=== PATIENT | female | born 1960 | race Caucasian/White ===

== ENCOUNTER 2022-07-07 15:04 | Inpatient (IN) | payer MEDICARE, MEDICAID, SELFPAY ==
[2022-07-07 23:07] VITALS: BP 155/91; PULSE 73; RESP 18; TEMP 36.4; O2SAT 95
[2022-07-07 23:11] VITALS: BMI 30.7
--- NOTE | 2022-07-07 23:40 | PC.NURSE ---
pt admitted to NPU from [facility] for s/i and increased depression. arrived calm and cooperative. safety/body check performed with no contraband noted. pt has midline abdomen scar from previous surgery from an infection. no other issues noted. pt reports increased suicidal thoughts and depression for the last three weeks. states she has this intermittently and it stems from missing her mother and child. reports home meds and their compliance. denies hi vh but reports auditory hallucinations telling her to harm herself. pt has some difficulty ambulating and uses a straight cane to assist at home. lives with brother who is supportive. reports marijuana use but denies other drug or alcohol use. vapes as well. oriented to unit. no other issues voiced or noted.
[2022-07-07] MEDS: benzocaine 20% 7 gm 1 APPLIC MUCOUS MEM (23:46)
[2022-07-07] MEDS: nicotine 4 mg lozenge MUCOUS MEM (23:49)
[2022-07-08 06:00] VITALS: BP 142/85; PULSE 91; RESP 15; TEMP 36.6; O2SAT 97
[2022-07-08] MEDS: ibuprofen 600 mg Tablet PO (06:09)
[2022-07-08] MEDS: hyDROXYzine 25 mg Capsule 50 MG PO (08:24)
[2022-07-08] MEDS: nicotine 21 mg Patch 1 PATCH TRANSDERMA (09:40)
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
[2022-07-08] MEDS: sertraline 100 mg Tablet 150 MG PO (11:51)
[2022-07-08] MEDS: prazosin 5 mg Capsule PO (11:52)
[2022-07-08] MEDS: lisinopril 20 mg Tablet PO (11:52)
[2022-07-08] MEDS: lurasidone 20 mg Tablet 40 MG PO ×2 (12:29→18:14)
[2022-07-08 14:00] VITALS: BP 101/62; PULSE 92; TEMP 36.6
[2022-07-08 15:28] VITALS: PULSE 91; RESP 18; O2SAT 97
[2022-07-08 15:29] LABS: Glucose Point of Care 138 mg/dL (70-110)
--- NOTE | 2022-07-08 15:44 | PC.NURSE ---
génesis xie notify nursing staff of pt bp 84/61 by machine, manual bp 82/58 by myself, rn acute notified results of bp at that time.82/60 notified yeni mendiola . Rapid called at 1517 cutting supervisor, Dr. fabian,génesis Xie, RT Franklin, Dr. Becker, edwardo Castellanos, Rn Madelin pt bp 100/60 lying down, sitting up 79/49 pt being transfered to Med-surg room 276 bed 2
--- NOTE | 2022-07-08 15:55 | PC.NURSE ---
This RN responded to rapid response in NPU. Patient was assisted into wheelchair and brought into pt room and assisted to bed. Patient's BP was taken manual and then again with vital sign machine. MD at bedside. Orthostatic vitals obtained. Orthostatic vitals positive. IV started per MD request. this RN started 20 G IV in posterior right forearm. Primary nurse made aware that while IV is in place in NPU, patient will need to be 1:1. All trash and sharps were collected. Sharps disposed of in Sharps container in nurses station.
[2022-07-08 16:01] VITALS: BP 101/62; BP 103/67; BP 92/57; PULSE 111; PULSE 92; PULSE 96
--- NOTE | 2022-07-08 16:02 | P.CONIM_ITS ---
Providers/Reason For Consult Consulting Physician/Specialty*: Dr. Pablo Agarwal/ internal medicine Reason for Consult*: Orthostatic hypotension Requesting Physician: Dr. Herve Sheffield psychiatry Attending Physician: Yohannes Burger MD History of Present Illness History of Present Illness Cordelia Vargas is a 62 year old female with past medical history of major depressive disorder, currently she was being managed in NPU, MDD, with active suicidal ideation, rapid response was called, as the patient was about to pass out, I along with other medical staff responded to the rapid response Vital signs were checked, patient was found to be orthostatic positive, she denied any, chest pain shortness of breath, palpitation, nausea vomiting. Patient was transferred to medical floor IV hydration as She appeared slightly dry. Review of Systems General: Reports: 10 or more systems reviewed and unremarkable except in HPI and below Const: Denies: fever(s), chills, body aches, change in appetite or diaphoresis Card: Denies: palpitations, edema, swelling of feet/ankles, dyspnea on exertion, orthopnea or leg pain with exertion Resp: Denies: dyspnea, productive cough, wheezing or pain on inspiration GI: Denies: abdominal pain, nausea, vomiting, diarrhea or constipation : Denies: flank pain Musc: Denies: back pain, extremity pain or extremity swelling Neuro: Denies: headache(s), difficulty walking or confusion Medications/Allergies Home Medications Medication Instructions Recorded Confirmed Last Taken Type albuterol sulfate 90 mcg/actuation 2 puff inhalation PRN PRN 07/07/22 07/08/22 07/06/22 History aerosol inhaler (Ventolin HFA) Shortness Of Breath Or Wheezing amitriptyline 150 mg tablet 150 mg PO UNK 07/07/22 07/07/22 Unknown History aripiprazole 20 mg tablet (Abilify) 20 mg PO K 07/07/22 07/08/22 Unknown History atorvastatin 20 mg tablet (Lipitor) 20 mg PO K 07/08/22 07/08/22 Unknown H istory benztropine 1 mg tablet 1 mg PO K 07/08/22 07/08/22 Unknown History cyclobenzaprine 5 mg tablet 5 mg PO TID spasms 07/08/22 07/08/22 Unknown History divalproex 500 mg tablet,extended 500 mg PO UNK 07/08/22 07/08/22 Unknown History release 24 hr (Depakote ER) famotidine 20 mg tablet (Acid 20 mg PO UNK 07/08/22 07/08/22 Unknown History Controller) gabapentin 100 mg capsule 100 mg PO UNK 07/08/22 07/08/22 Unknown History (Neurontin) hydroxyzine pamoate 50 mg capsule 50 mg PO DAILY 07/08/22 07/08/22 Unknown History (Vistaril) levetiracetam 500 mg tablet 500 mg PO UNK 07/08/22 07/08/22 Unknown History (Keppra) lisinopril 20 mg tablet (Zestril) 20 mg PO DAILY 07/08/22 07/08/22 Unknown History lurasidone 40 mg tablet (Latuda) 40 mg PO UNK 07/08/22 07/08/22 Unknown History mirtazapine 15 mg tablet (Remeron) 15 mg PO UNK 07/08/22 07/08/22 Unknown History pantoprazole 40 mg tablet,delayed 40 mg PO DAILY Indigestion 07/08/22 07/08/22 Unknown History release (Protonix) prazosin 5 mg capsule (Minipress) 5 mg PO UNK 07/08/22 07/08/22 Unknown History rivaroxaban 10 mg tablet (Xarelto) 10 mg PO K 07/08/22 07/08/22 Unknown His tory sertraline 100 mg tablet (Zoloft) 100 mg PO UNK 07/08/22 07/08/22 Unknown History sucralfate 1 gram tablet (Carafate) 1 g PO UNK 07/08/22 07/08/22 Unknown History tetrabenazine 25 mg tablet 25 mg PO UNK 07/08/22 07/08/22 Unknown History (Xenazine) trazodone 100 mg tablet 100 mg PO UNK 07/08/22 07/08/22 Unknown History Allergies Allergy/AdvReac Type Severity Reaction Status Date / Time apixaban Allergy ALGY-Anaphy Verified 07/07/22 23:24 laxis erythromycin base Allergy ADR/ALGY-Fl Verified 07/07/22 23:25 [From E.E.S.] ushing Erythropoietin Analogues Allergy ALGY-Anaphy Verified 07/07/22 23:25 laxis latex Allergy ALGY-Difficulty Verified 07/07/22 23:25 Breathing shellfish derived Allergy ALGY-Difficulty Verified 07/07/22 23:25 Breathing Sulfa (Sulfonamide Allergy ADR/ALGY-Fl Verified 07/07/22 23:23 Antibiotics) ushing sulfamethoxazole Allergy ADR/ALGY-Fl Verified 07/07/22 23:24 [From Bactrim] ushing trimethoprim [From Bactrim] Allergy ADR/ALGY-Fl Verified 07/07/22 23:24 ushing Current Medications Generic Name Dose Route Start Last Admin Trade Name Freq PRN Reason Stop Dose Admin Benzocaine 1 applic 07/07/22 23:37 07/07/22 23:46 Benzocaine 20% 7 Gm MUCOUS MEM 1 applic PRN PRN Administration PAIN Hydroxyzine Pamoate 50 mg 07/07/22 23:07 07/08/22 08:24 Hydroxyzine 25 Mg Capsule PO 50 mg Q6H PRN Administration ANXIETY Ibuprofen 600 mg 07/07/22 23:07 07/08/22 06:09 Ibuprofen 600 Mg Tablet PO 600 mg Q6H PRN Administration MODERATE PAIN Lisinopril 20 mg 07/08/22 10:21 07/08/22 11:52 Lisinopril 20 Mg Tablet PO 20 mg DAILY CHLOÉ Administration Lurasidone HCl 40 mg 07/08/22 12:00 07/08/22 12:29 Lurasidone 20 Mg Tablet PO 40 mg BID CHLOÉ Administration Nicotine 1 patch 07/07/22 23:07 07/08/22 09:40 Nicotine 21 Mg Patch TRANSDERMA 1 patch DAILY PRN Administration NICOTINE WITHDRAWAL Nicotine Polacrilex 4 mg 07/07/22 23:42 07/07/22 23:49 Nicotine 4 Mg Lozenge MUCOUS MEM 4 mg Q2H PRN Administration NICOTINE CRAVINGS Non-Formulary Medication 12.5 mg 07/08/22 09:00 07/08/22 11:06 Tetrabenazine [Xenazine] PO Not Given DAILY CHLOÉ Prazosin HCl 5 mg 07/08/22 10:21 07/08/22 11:52 Prazosin 5 Mg Capsule PO 5 mg BID CHLOÉ Administration Sertraline HCl 150 mg 07/08/22 09:00 07/08/22 11:51 Sertraline 100 Mg Tablet PO 150 mg DAILY CHLOÉ Administration Vitals/I&O/Wt Last Vital Signs Temp 97.8 F 07/08/22 06:00 Pulse 91 07/08/22 15:28 Resp 18 07/08/22 15:28 BP 142/85 07/08/22 06:00 Pulse Ox 97 07/08/22 15:28 O2 Del Method Room Air 07/08/22 15:28 Weight last 48 hrs Weight 88.995 kg Weight 88.961 kg Physical Exam Const: COMMON NORMALS: patient oriented x3 HENMT: COMMON NORMALS: normocephalic and atraumatic HEAD & SCALP: normocephalic and atraumatic Resp: COMMON NORMALS: clear to auscultation bilaterally AUSCULTATION: clear to auscultation bilaterally Cardio: COMMON NORMALS: regular rate, regular rhythm, S1 normal heart sound present, S2 normal heart sound present, No gallops present (Cardio), No murmurs present (Cardio), No rub (Cardio) and Peripheral pulses 2+ throughout RATE: regular rate RHYTHM: regular rhythm HEART SOUNDS: S1 normal heart sound present and S2 normal heart sound present PERIPHERAL PULSES: Peripheral pulses 2+ throughout GI: COMMON NORMALS: Normal to inspection, nondistended, normoactive bowel sounds present, Soft to palpation, non-tender, No hepatosplenomegaly present and no masses AUSCULTATION: Yes normoactive bowel sounds PALPATION: Yes Soft to palpation and Yes No hepatosplenomegaly present RECTAL EXAM: deferred Extremity: COMMON NORMALS: no clubbing, cyanosis or edema and no pedal edema Neuro: COMMON NORMALS: patient oriented x3 Data 07/09/22 04:49 07/09/22 04:49 A&P Assessment and plan (1) Major depressive disorder, recurrent: (2) PTSD (post-traumatic stress disorder): (3) Orthostatic hypotension: (4) Pre-syncope: Plan 62 year old female with past medical history of major depressive disorder, currently she was being managed in NPU, MDD, with active suicidal ideation, rapid response was called, as the patient was about to pass out, I along with other medical staff responded to the rapid response Vital signs were checked, patient was found to be orthostatic positive, she denied any, chest pain shortness of breath, palpitation, nausea vomiting. Patient was transferred to medical floor IV hydration as She appeared slightly dry. Assessment: Presyncope secondary to significant orthostatic hypotension: Possibly secondary dehydration: Monitor routine a.m. labs Monitor orthostatic vital sign Continue IV hydration with normal saline 100 cc an hour Patient will be transferred to medical surgical unit for monitoring. Coding Level of Care Code 79151 Diagnoses Major depressive disorder, recurrent F33.9 PTSD (post-traumatic stress disorder) F43.10 Orthostatic hypotension I95.1 Pre-syncope R55
--- NOTE | 2022-07-08 16:09 | PC.NURSE ---
called report to Sanjana Pritchett, transfering pt via wheelchair to room 276 bed 2
[2022-07-08] MEDS: cyclobenzaprine 10 mg Tablet 5 MG PO ×2 (17:23→21:21)
--- NOTE | 2022-07-08 17:23 | PC.NURSE ---
Verbal order from Dr. Agarwal to hold Prazosin due to hypertensive
[2022-07-08] MEDS: sodium chloride 0.9% 1,000 ML 100 ML IV (17:24)
[2022-07-08] MEDS: acetaminophen 325 mg Tablet 650 MG PO ×2 (19:23→23:55)
[2022-07-08 19:57] VITALS: BP 145/83; PULSE 84; RESP 18; TEMP 36.7; O2SAT 94
[2022-07-08] MEDS: mirtazapine 15 mg Tablet PO (21:20)
[2022-07-08 23:56] VITALS: BP 135/72; PULSE 66; RESP 16; TEMP 36.5; O2SAT 93
[2022-07-09] VITALS (7 sets, daily range): BP systolic 144–175; BP diastolic 81–94; PULSE 67–84; RESP 14–20; TEMP 36.4–37.3; O2SAT 93–95
[2022-07-09] MEDS: sodium chloride 0.9% 1,000 ML 100 ML IV (02:47)
[2022-07-09 05:13] LABS: Basophils # 0.1 10^3/uL (0.0-0.1); Basophils % 0.7 %; Eosinophils # 0.3 10^3/uL (0.0-0.8); Eosinophils % 3.8 %; Hematocrit 40.9 % (37.0-47.0); Hemoglobin 11.8 g/dL (11.5-15.3); Lymphocytes # 4.1 10^3/uL (0.8-4.8); Lymphocytes % 45.5 %; Mean Corpuscular HGB Conc 28.9 g/dL (30.0-36.0); Mean Corpuscular Hemoglobin 28.3 pg (28.0-34.0); Mean Corpuscular Volume 98.1 fl (81-99); Mean Platelet Volume 10.1 fL (7.4-10.4); Monocytes % 11.1 %; Neutrophils # 3.46 10^3/uL (1.8-7.7); Neutrophils % 38.6 %; Nucleated Red Blood Cells % 0 %; Platelet Count 217 10^3/cmm (130-400); Red Blood Count 4.17 10^6/uL (4.1-5.3); Red Cell Distribution Width 12.5 % (12.1-15.1)
[2022-07-09 05:39] LABS: Alanine Aminotransferase 17 U/L (0-33); Albumin Level 3.5 g/dL (3.5-5.2); Alkaline Phosphatase 93 U/L (35-105); Anion Gap 14.7 (5-19); Aspartate Amino Transferase 23 U/L (0-32); Blood Urea Nitrogen 20 mg/dL (8-23); Calcium 8.3 mg/dL (8.5-10.5); Carbon Dioxide 22 mmol/L (22-29); Chloride 109 mmol/L (98-107); Globulin 2.7 g/dL (1.3-4.6); Glomerular Filtration Rate 72.9 mL/min (90-130); Glucose 100 mg/dL (65-115); Osmolality Calculated 295 mOsm/kg (285-295); Potassium 4.7 mmol/L (3.5-5.1); Sodium 141 mmol/L (136-145); Total Bilirubin 0.2 mg/dL (0.15-1.2); Total Protein 6.2 g/dL (6.6-8.7)
--- NOTE | 2022-07-09 09:15 | W.PM.NPUPNS ---
Subjective NPU Subjective: Patient presented today reporting that she is feeling better than when she got transferred to the [facility] unit. She reports she is feeling better overall as well tolerating the increase in Zoloft to 150 mg p.o. daily. We discussed the importance of us identifying what resources and referrals she needs to be safe after discharge. Mental Status Exam MSE Comments: This is an overweight versus obese, mixed and -Stateless female, in hospital scrubs, with adequate grooming and eye contact. No abnormal movements, except for some limited ataxia with gait and mild psychomotor retardation, and she did have some tongue gesticulations which could represent something post stroke versus EPS. Cooperative with exam in mild distress. Speech was slightly decreased rate and volume, with difficulty with pronunciation of Rs. Mood described as a little better; affect slightly subdued. Thought process, organized. Thought content: patient endorsed suicidal ideation but denies homicidal ideation, she endorsed paranoia but there were no delusions noted, patient reports that she does hear voices but did not appear to be attending to internal stimuli. Attention and concentration appeared intact, and memory appeared mostly reliable, but none were formally tested. Alert and oriented times three. Insight and judgment appeared fair. Impulse control is limited. Vitals/I&O/Wt Last Vital Signs Temp 97.6 F 07/09/22 04:25 Pulse 71 07/09/22 04:25 Resp 18 07/09/22 04:25 BP 169/93 07/09/22 04:25 Pulse Ox 95 07/09/22 04:25 O2 Del Method Room Air 07/09/22 04:25 07/08/22 07/09/22 07/09/22 22:59 06:59 14:59 Intake Total 938.333 / 938.333 480 / 480 Balance 938.333 / 938.333 480 / 480 Weight last 48 hrs Weight 88.995 kg Weight 88.961 kg Data NPU 07/10/22 07:46 07/10/22 07:46 Involuntary Hold Information 96 Hour Hold: 96 Hour Involuntary Admission: No Attestations NPU Medical Necessity Statement*: Inpatient hospitalization is medically necessary and the clinically appropriate intervention, at this time. We will monitor medications and make changes as indicated. Likely length of stay is 2-4 days. Coding Level of Care Code Acute Code for [facility] Fwd Diagnoses
[2022-07-09] MEDS: sertraline 100 mg Tablet 150 MG PO (09:51)
[2022-07-09] MEDS: cyclobenzaprine 10 mg Tablet 5 MG PO ×3 (09:51→21:26)
[2022-07-09] MEDS: lurasidone 20 mg Tablet 40 MG PO ×2 (09:53→17:05)
--- NOTE | 2022-07-09 12:15 | PM.PN ---
Subjective Subjective: Patient was seen and examined this morning, denied any dizziness, has been walking to bathroom without difficulty, she was complaining of some neck pain.Has been on IV fluids, orthostatic vital signs are negative. Medications: Medication Review Details: Generic Name Dose Route Start Last Admin Trade Name Ariq PRN Reason Stop Dose Admin Acetaminophen 650 mg 07/07/22 23:07 07/08/22 23:55 Acetaminophen 32 5 Mg Tablet PO 650 mg Q4H PRN Administration MILD PAIN Benzocaine 1 applic 07/07/22 23:37 07/07/22 23:46 Benzocaine 20% 7 Gm MUCOUS MEM 1 applic PRN PRN Administration PAIN Cyclobenzaprine HC l 5 mg 07/08/22 15:00 07/09/22 09:51 Cyclobenzaprine 10 Mg Tablet PO 5 mg TID CHLOÉ Administration Hydroxyzine Pamoat e 50 mg 07/07/22 23:07 07/08/22 08:24 Hydroxyzine 25 M g Capsule PO 50 mg Q6H PRN Administration ANXIETY Sodium Chloride 1,000 mls @ 100 m ls/hr 07/08/22 16:00 07/09/22 02:47 Sodium Chloride 0.9% IV 100 mls/hr .Q10H CHLOÉ Administration Ibuprofen 600 mg 07/07/22 23:07 07/08/22 06:09 Ibuprofen 600 Mg Tablet PO 600 mg Q6H PRN Administration MODERATE PAIN Lurasidone HCl 40 mg 07/08/22 12:00 07/09/22 09:53 Lurasidone 20 Mg Tablet PO 40 mg BID CHLOÉ Administration Mirtazapine 15 mg 07/08/22 21:00 07/08/22 21:20 Mirtazapine 15 M g Tablet PO 15 mg BEDTIME CHLOÉ Administration Nicotine 1 patch 07/07/22 23:07 07/08/22 09:40 Nicotine 21 Mg P atch TRANSDERMA 1 patch DAILY PRN Administration NICOTINE WITHDRAW AL Nicotine Polacrile x 4 mg 07/07/22 23:42 07/07/22 23:49 Nicotine 4 Mg Lo zenge MUCOUS MEM 4 mg Q2H PRN Administration NICOTINE CRAVINGS Non-Formulary Medi cation 12.5 mg 07/08/22 09:00 07/08/22 11:06 Tetrabenazine [X enazine] PO Not Given DAILY CHLOÉ Sertraline HCl 150 mg 07/08/22 09:00 07/09/22 09:51 Sertraline 100 M g Tablet PO 150 mg DAILY CHLOÉ Administration Vitals/I&O/Wt Last Vital Signs Temp 97.6 F 07/09/22 04:25 Pulse 67 07/09/22 09:16 Resp 18 07/09/22 09:16 BP 167/90 07/09/22 10:05 Pulse Ox 94 07/09/22 09:16 O2 Del Method Room Air 07/09/22 09:16 07/08/22 07/09/22 07/09/22 22:59 06:59 14:59 Intake Total 938.333 / 938.333 480 / 480 Balance 938.333 / 938.333 480 / 480 Weight last 48 hrs Weight 88.995 kg Weight 88.961 kg Physical Exam Const: COMMON NORMALS: patient oriented x3 HENMT: COMMON NORMALS: normocephalic and atraumatic HEAD & SCALP: normocephalic and atraumatic Resp: COMMON NORMALS: clear to auscultation bilaterally AUSCULTATION: clear to auscultation bilaterally Cardio: COMMON NORMALS: regular rate, regular rhythm, S1 normal heart sound present, S2 normal heart sound present, No gallops present (Cardio), No murmurs present (Cardio), No rub (Cardio) and Peripheral pulses 2+ throughout RATE: regular rate RHYTHM: regular rhythm HEART SOUNDS: S1 normal heart sound present and S2 normal heart sound present PERIPHERAL PULSES: Peripheral pulses 2+ throughout GI: COMMON NORMALS: Normal to inspection, nondistended, normoactive bowel sounds present, Soft to palpation, non-tender, No hepatosplenomegaly present and no masses AUSCULTATION: Yes normoactive bowel sounds PALPATION: Yes Soft to palpation and Yes No hepatosplenomegaly present RECTAL EXAM: deferred Extremity: COMMON NORMALS: no clubbing, cyanosis or edema and no pedal edema Neuro: COMMON NORMALS: patient oriented x3 Data 07/09/22 04:49 07/09/22 04:49 A&P Assessment and plan (1) Major depressive disorder, recurrent: (2) PTSD (post-traumatic stress disorder): (3) Orthostatic hypotension: (4) Pre-syncope: Plan 62 year old female with past medical history of major depressive disorder, currently she was being managed in NPU, MDD, with active suicidal ideation, rapid response was called, as the patient was about to pass out, I along with other medical staff responded to the rapid response Vital signs were checked, patient was found to be orthostatic positive, she denied any, chest pain shortness of breath, palpitation, nausea vomiting. Patient was transferred to medical floor IV hydration as She appeared slightly dry. Assessment: Presyncope secondary to significant orthostatic hypotension: Possibly secondary dehydration: Monitor routine a.m. labs Monitor orthostatic vital sign Continue IV hydration with normal saline 100 cc an hour Patient is being transferred back to [facility] Hypertension: Resume antihypertensive medications from tomorrow morning. For today we will give her 1 dose of lisinopril 10 mg p.o. 1 time today. Attestations Medical Necessity Statement*: Per primary team. Coding Level of Care Code Acute Code for g Fwd Diagnoses Major depressive disorder, recurrent F33.9 PTSD (post-traumatic stress disorder) F43.10 Orthostatic hypotension I95.1 Pre-syncope R55
--- NOTE | 2022-07-09 12:18 | PC.NURSE ---
called report to Alisa Rodriguez RN in NPU
[2022-07-09] MEDS: ibuprofen 600 mg Tablet PO (14:10)
--- NOTE | 2022-07-09 16:06 | PC.NURSE ---
patient transferred from [facility] in stable condition. States she always has suicidal thoughts with no intent.
[2022-07-09] MEDS: acetaminophen 325 mg Tablet 650 MG PO (17:02)
[2022-07-09] MEDS: mirtazapine 15 mg Tablet PO (21:26)
[2022-07-09] MEDS: hyDROXYzine 25 mg Capsule 50 MG PO (21:32)
[2022-07-10] MEDS: ibuprofen 600 mg Tablet PO ×2 (00:15→22:31)
[2022-07-10 06:00] VITALS: RESP 14; BMI 30.7
[2022-07-10 08:00] LABS: Basophils # 0.1 10^3/uL (0.0-0.1); Basophils % 0.8 %; Eosinophils # 0.4 10^3/uL (0.0-0.8); Eosinophils % 5.2 %; Hematocrit 42.5 % (37.0-47.0); Hemoglobin 13.4 g/dL (11.5-15.3); Lymphocytes # 3.4 10^3/uL (0.8-4.8); Mean Corpuscular HGB Conc 31.5 g/dL (30.0-36.0); Mean Corpuscular Hemoglobin 28.4 pg (28.0-34.0); Mean Platelet Volume 9.9 fL (7.4-10.4); Monocytes # 0.6 10^3/uL (0.2-0.9); Monocytes % 8.2 %; Neutrophils # 2.65 10^3/uL (1.8-7.7); Neutrophils % 37.5 %; Nucleated Red Blood Cells % 0 %; Platelet Count 258 10^3/cmm (130-400); Red Blood Count 4.72 10^6/uL (4.1-5.3); Red Cell Distribution Width 12.4 % (12.1-15.1); White Blood Count 7.1 10^3/uL (4.0-10.0)
[2022-07-10 08:15] LABS: Alanine Aminotransferase 27 U/L (0-33); Albumin Level 4.2 g/dL (3.5-5.2); Alkaline Phosphatase 125 U/L (35-105); Anion Gap 14.5 (5-19); Aspartate Amino Transferase 29 U/L (0-32); Blood Urea Nitrogen 13 mg/dL (8-23); Calcium 8.8 mg/dL (8.5-10.5); Carbon Dioxide 24 mmol/L (22-29); Chloride 104 mmol/L (98-107); Glomerular Filtration Rate 85.1 mL/min (90-130); Glucose 101 mg/dL (65-115); Osmolality Calculated 286 mOsm/kg (285-295); Potassium 4.5 mmol/L (3.5-5.1); Sodium 138 mmol/L (136-145); Total Bilirubin 0.3 mg/dL (0.15-1.2); Total Protein 7.2 g/dL (6.6-8.7)
[2022-07-10] MEDS: lurasidone 20 mg Tablet 40 MG PO ×2 (08:26→17:31)
[2022-07-10] MEDS: cyclobenzaprine 10 mg Tablet 5 MG PO ×3 (08:27→19:39)
[2022-07-10] MEDS: sertraline 100 mg Tablet 150 MG PO (08:27)
[2022-07-10] MEDS: lisinopril 20 mg Tablet PO (08:33)
[2022-07-10] MEDS: benzocaine 20% 7 gm 1 APPLIC MUCOUS MEM (09:34)
[2022-07-10] MEDS: OLANZapine 5 mg ODT PO ×2 (09:56→19:39)
[2022-07-10 10:00] VITALS: BP 138/94; PULSE 74
[2022-07-10] MEDS: haloperidol 5 mg Tablet PO (10:28)
--- NOTE | 2022-07-10 12:30 | W.PM.NPUPNS ---
Subjective NPU Subjective: Patient presented today reporting that she is feeling stressed due to her dealing with increased voices She reports she is feeling fine and tolerating the increase in Zoloft to 150 mg p.o. daily. We discussed the importance of us identifying what resources and referrals she needs to be safe after discharge. We discussed increasing the Latuda versus adding a different antipsychotic. Mental Status Exam MSE Comments: This is an overweight versus obese, mixed and -[place] female, in hospital scrubs, with adequate grooming and eye contact. No abnormal movements, except for some limited ataxia with gait and mild psychomotor retardation, and she did have some tongue gesticulations which could represent something post stroke versus EPS. Cooperative with exam in mild distress. Speech was slightly decreased rate and volume, with difficulty with pronunciation of Rs. Mood described as frustrated due to voices; affect slightly subdued. Thought process, organized. Thought content: patient endorsed suicidal ideation but denies homicidal ideation, she endorsed paranoia but there were no delusions noted, patient reports that she is hearing voices but did not appear to be attending to internal stimuli. Attention and concentration appeared intact, and memory appeared mostly reliable, but none were formally tested. Alert and oriented times three. Insight and judgment appeared fair. Impulse control is limited. Vitals/I&O/Wt Last Vital Signs Temp 98.4 F 07/10/22 19:55 Pulse 87 07/10/22 19:55 Resp 17 07/10/22 19:55 BP 137/82 07/10/22 19:55 Pulse Ox 94 07/10/22 19:55 O2 Del Method Room Air 07/10/22 19:55 Weight last 48 hrs Weight 88.995 kg Data NPU 07/10/22 07:46 07/10/22 07:46 A&P Assessment and plan (1) PTSD (post-traumatic stress disorder): (2) Major depressive disorder, recurrent: Plan This is a 62-year-old, mixed-race female, with a long history of trauma and addiction, who presents on medication reporting continued depression and suicidality as well as auditory hallucinations. 1. Continue current medication and review for appropriate changes. 2. Encourage individual, group, and milieu therapy. 3. Recommend sober living treatment at the highest level of care to which the patient is willing to commit. 4. Continue q-15 minute checks for safety. Involuntary Hold Information 96 Hour Hold: 96 Hour Involuntary Admission: No Attestations NPU Medical Necessity Statement*: Inpatient hospitalization is medically necessary and the clinically appropriate intervention, at this time. We will monitor medications and make changes as indicated. Likely length of stay is 2-4 days. Coding Level of Care Code Acute Code for Chg Fwd Diagnoses PTSD (post-traumatic stress disorder) F43.10 Major depressive disorder, recurrent F33.9
[2022-07-10 12:34] VITALS: BP 150/93; PULSE 80; RESP 18; TEMP 36.6; O2SAT 97
[2022-07-10] MEDS: prazosin 5 mg Capsule PO ×2 (17:31→19:39)
[2022-07-10] MEDS: mirtazapine 15 mg Tablet PO (19:39)
[2022-07-10 19:55] VITALS: BP 137/82; PULSE 87; RESP 17; TEMP 36.9; O2SAT 94
[2022-07-11 06:00] VITALS: RESP 16
[2022-07-11] MEDS: cyclobenzaprine 10 mg Tablet 5 MG PO ×3 (07:51→20:19)
[2022-07-11] MEDS: lurasidone 20 mg Tablet 40 MG PO ×2 (07:51→17:35)
[2022-07-11] MEDS: sertraline 100 mg Tablet 150 MG PO (07:51)
[2022-07-11] MEDS: prazosin 5 mg Capsule PO ×2 (07:52→20:20)
[2022-07-11] MEDS: lisinopril 20 mg Tablet PO (07:52)
[2022-07-11] MEDS: hyDROXYzine 25 mg Capsule 50 MG PO (07:55)
--- NOTE | 2022-07-11 07:56 | PC.NURSE ---
PRN VISTARIL 50 MG GIVEN PO PER PT C/O STATED ANXIETY
[2022-07-11] MEDS: OLANZapine 5 mg ODT PO (08:55)
[2022-07-11 08:57] LABS: Basophils # 0.1 10^3/uL (0.0-0.1); Basophils % 0.9 %; Eosinophils # 0.4 10^3/uL (0.0-0.8); Eosinophils % 4.9 %; Hematocrit 41.8 % (37.0-47.0); Hemoglobin 13.2 g/dL (11.5-15.3); Lymphocytes # 3.2 10^3/uL (0.8-4.8); Mean Corpuscular HGB Conc 31.6 g/dL (30.0-36.0); Mean Corpuscular Hemoglobin 28.5 pg (28.0-34.0); Mean Corpuscular Volume 90.3 fl (81-99); Monocytes # 0.7 10^3/uL (0.2-0.9); Monocytes % 9.3 %; Neutrophils # 3.18 10^3/uL (1.8-7.7); Neutrophils % 42.5 %; Nucleated Red Blood Cells % 0 %; Platelet Count 256 10^3/cmm (130-400); Red Blood Count 4.63 10^6/uL (4.1-5.3); Red Cell Distribution Width 12.5 % (12.1-15.1); White Blood Count 7.5 10^3/uL (4.0-10.0)
[2022-07-11 09:14] LABS: Alanine Aminotransferase 24 U/L (0-33); Albumin Level 4.1 g/dL (3.5-5.2); Alkaline Phosphatase 112 U/L (35-105); Blood Urea Nitrogen 14 mg/dL (8-23); Calcium 8.5 mg/dL (8.5-10.5); Carbon Dioxide 23 mmol/L (22-29); Chloride 101 mmol/L (98-107); Globulin 3.3 g/dL (1.3-4.6); Glomerular Filtration Rate 63.7 mL/min (90-130); Glucose 119 mg/dL (65-115); Osmolality Calculated 284 mOsm/kg (285-295); Sodium 136 mmol/L (136-145); Total Bilirubin 0.2 mg/dL (0.15-1.2); Total Protein 7.4 g/dL (6.6-8.7)
[2022-07-11 09:21] LABS: Anion Gap 16.1 (5-19); Aspartate Amino Transferase 22 U/L (0-32); Potassium 4.1 mmol/L (3.5-5.1)
[2022-07-11 10:54] VITALS: BP 125/76
[2022-07-11 10:56] VITALS: BP 105/48
[2022-07-11] MEDS: ibuprofen 600 mg Tablet PO ×2 (12:46→22:05)
[2022-07-11 13:50] VITALS: BP 121/69; PULSE 97; RESP 18; TEMP 36.7; O2SAT 97
--- NOTE | 2022-07-11 17:04 | W.PM.NPUPNS ---
Subjective NPU Subjective: Patient presented today reporting that she is still struggling with voices. Her presentation when she is hearing voices in her presentation when she is not looks exactly the same outside of the report of the distress which does not appear distressing other than the words. We did discuss the Latuda and making sure that it was taken with meals and the plan to increase it tomorrow. Otherwise she reports that she has had some episodes of feeling a little dizzy but she reports she has had that since her stroke and possibly had it before then. Mental Status Exam MSE Comments: This is an overweight versus obese, mixed and -[place] female, in hospital scrubs, with adequate grooming and eye contact. No abnormal movements, except for some limited ataxia with gait and mild psychomotor retardation, and she did have some tongue gesticulations which could represent something post stroke versus EPS. Cooperative with exam in mild distress. Speech was slightly decreased rate and volume, with difficulty with pronunciation of Rs. Mood described as frustrated due to voices; affect slightly subdued. Thought process, organized. Thought content: patient endorsed suicidal ideation but denies homicidal ideation, she endorsed paranoia but there were no delusions noted, patient reports that she is hearing voices but did not appear to be attending to internal stimuli. Attention and concentration appeared intact, and memory appeared mostly reliable, but none were formally tested. Alert and oriented times three. Insight and judgment appeared fair. Impulse control is limited. Vitals/I&O/Wt Last Vital Signs Temp 98.0 F 07/11/22 13:50 Pulse 97 07/11/22 13:50 Resp 18 07/11/22 13:50 BP 121/69 07/11/22 13:50 Pulse Ox 97 07/11/22 13:50 O2 Del Method Room Air 07/11/22 10:54 Weight last 48 hrs Weight 88.995 kg Data NPU 07/11/22 08:48 07/11/22 08:48 A&P Assessment and plan (1) PTSD (post-traumatic stress disorder): (2) Major depressive disorder, recurrent: Plan This is a 62-year-old, mixed-race female, with a long history of trauma and addiction, who presents on medication reporting continued depression and suicidality as well as auditory hallucinations. 1. Continue current medication and review for appropriate changes. Increase Latuda to 100 mg total in 2 divided doses with meals. 2. Encourage individual, group, and milieu therapy. 3. Recommend sober living treatment at the highest level of care to which the patient is willing to commit. 4. Continue q-15 minute checks for safety. Involuntary Hold Information 96 Hour Hold: 96 Hour Involuntary Admission: No Attestations NPU Medical Necessity Statement*: Inpatient hospitalization is medically necessary and the clinically appropriate intervention, at this time. We will monitor medications and make changes as indicated. Likely length of stay is 1-3 days. Coding Level of Care Code Acute Code for Chg Fwd Diagnoses PTSD (post-traumatic stress disorder) F43.10 Major depressive disorder, recurrent F33.9
[2022-07-11] MEDS: mirtazapine 15 mg Tablet PO (20:20)
[2022-07-11 20:53] VITALS: BP 133/83; PULSE 107; RESP 18; TEMP 37; O2SAT 94
[2022-07-12 05:44] VITALS: BP 133/85; PULSE 107; RESP 18; TEMP 36.5; O2SAT 95
[2022-07-12] MEDS: lurasidone 20 mg Tablet 40 MG PO ×2 (06:25→17:41)
[2022-07-12] MEDS: lisinopril 20 mg Tablet PO (09:47)
[2022-07-12] MEDS: sertraline 100 mg Tablet 150 MG PO (09:47)
[2022-07-12] MEDS: cyclobenzaprine 10 mg Tablet 5 MG PO ×3 (09:48→20:02)
[2022-07-12] MEDS: prazosin 5 mg Capsule PO ×2 (09:50→20:02)
[2022-07-12 14:00] VITALS: BP 117/80; PULSE 88; RESP 17; TEMP 36.7; O2SAT 95
--- NOTE | 2022-07-12 18:29 | P.NPUPN_ITS ---
Subjective NPU Subjective: Patient presented today reporting that she is no longer hearing voices. We did discuss the Latuda and making sure that it was taken with meals and the plan to increase it. Otherwise she reports things are getting better and we discussed possibility of discharge in the next 48 hours. Mental Status Exam MSE Comments: This is an overweight versus obese, mixed and -[place] female, in hospital scrubs, with adequate grooming and eye contact. No abnormal movements, except for some limited ataxia with gait and mild psychomotor retardation, and she did have some limited tongue gesticulations which could represent something post stroke versus EPS. Cooperative with exam in no acute distress. Speech was slightly decreased rate and volume, with difficulty with pronunciation of Rs. Mood described as better; affect congruent. Thought process, organized. Thought content: patient denied suicidal or homicidal ideation, she denied paranoia and there were no delusions noted, patient reports that she is no longer hearing voices but did not appear to be attending to internal stimuli. Attention and concentration appeared intact, and memory appeared mostly reliable, but none were formally tested. Alert and oriented times three. Insight and judgment appeared fair. Impulse control is limited. Vitals/I&O/Wt Last Vital Signs Temp 98.3 F 07/12/22 20:11 Pulse 82 07/12/22 20:11 Resp 18 07/12/22 20:11 BP 148/84 07/12/22 20:11 Pulse Ox 96 07/12/22 20:11 O2 Del Method Nasal Cannula 07/12/22 20:11 O2 Flow Rate 3 07/12/22 20:11 Data NPU 07/11/22 08:48 07/11/22 08:48 A&P Assessment and plan (1) PTSD (post-traumatic stress disorder): (2) Major depressive disorder, recurrent: Plan This is a 62-year-old, mixed-race female, with a long history of trauma and addiction, who presents on medication reporting continued depression and suicidality as well as auditory hallucinations. 1. Continue current medication and review for appropriate changes. Increase Latuda to 100 mg total in 2 divided doses with meals. 2. Encourage individual, group, and milieu therapy. 3. Recommend sober living treatment at the highest level of care to which the patient is willing to commit. 4. Continue q-15 minute checks for safety. Involuntary Hold Information 96 Hour Hold: 96 Hour Involuntary Admission: No Attestations N[facility] Medical Necessity Statement*: Inpatient hospitalization is medically necessary and the clinically appropriate intervention, at this time. We will monitor medications and make changes as indicated. Likely length of stay is 1-2 days. Coding Level of Care Code Acute Code for Chg Fwd Diagnoses PTSD (post-traumatic stress disorder) F43.10 Major depressive disorder, recurrent F33.9
[2022-07-12] MEDS: mirtazapine 15 mg Tablet PO (20:02)
[2022-07-12 20:11] VITALS: BP 148/84; PULSE 82; RESP 18; TEMP 36.8; O2SAT 96
[2022-07-12] MEDS: acetaminophen 325 mg Tablet 650 MG PO (23:55)
[2022-07-13 06:00] VITALS: BP 145/83; PULSE 89; RESP 17; TEMP 36.6; O2SAT 98
[2022-07-13] MEDS: cyclobenzaprine 10 mg Tablet 5 MG PO (09:42)
[2022-07-13] MEDS: lisinopril 20 mg Tablet PO (09:42)
[2022-07-13] MEDS: sertraline 100 mg Tablet 150 MG PO (09:43)
[2022-07-13] MEDS: prazosin 1 mg Capsule 2 MG PO (09:43)
[2022-07-13] MEDS: lurasidone 20 mg Tablet 40 MG PO (09:43)
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
[2022-07-13 11:52] VITALS: BP 145/83; PULSE 89; RESP 17; TEMP 36.6; O2SAT 98
--- NOTE | 2022-07-13 12:03 | DCPLANNER ---
IMM was printed and right explained to pt and copy placed in file.
== END 2022-07-13 13:00 | disposition home or self-care (01) | DRG 881 ==
LOC: NP 07-08 00:08 → MEDSURG 07-08 16:27 → NP 07-09 14:03
PROVIDERS: Internal Medicine; Admitting Provider Psychiatry & Neurology Psychiatry; Visit Provider Psychiatry & Neurology Psychiatry
DX: F32.9 Major depressive disorder, single episode, unspecified (principal); R45.851 Suicidal ideations; Z86.73 Personal history of transient ischemic attack (TIA), and cerebral infarction without residual deficits; F17.290 Nicotine dependence, other tobacco product, uncomplicated; F10.11 Alcohol abuse, in remission; F12.90 Cannabis use, unspecified, uncomplicated; F41.9 Anxiety disorder, unspecified; F43.10 Post-traumatic stress disorder, unspecified; I95.1 Orthostatic hypotension; E86.0 Dehydration
CPT/HCPCS: 36415; 36416; 80053; 82962; 85025; 97150; 97165; J7030